=== PATIENT | female | born 1975 | race Two or more races ===

== ENCOUNTER → 2016-06-19 | Outpatient (CLI) | payer OTHER ==
--- NOTE | ~2016-06-19 | US98 ---
[facility] of [facility] RADIOLOGY TEXT RESULTS PATIENT: KAREN PULIDO LOCATION: [facility] : 73 UNIT #: [id number] AGE: [address]: Jarek Jordan MD SEX: F ORDER DR: [id number] [facility] [address] [place], [place] [address] [id number] O MR#: [id number] Acc #: [id number] NAME: KAREN PULIDO : 1975 SEX: F STUDY DATE/TIME: 06/19/2016 8:28 UNIT: [facility] ROOM: STUDY DESCRIPTION: US Pelvic Non-OB Complete Attending Physician: Jarek Jordan M.D. Referring Physician: Jarek Jordan M.D. Ordering Physician: Jarke Jordan M.D. Primary Care Physician: Jarek Jordan M.D. MEDICAL IMAGING REPORT This report is preliminary unless electronic signature is present EXAM Transabdominal and transvaginal pelvic ultrasound, 06/19/2016 HISTORY 40-year-old female with hematuria per referring physician's history. Patient states hematuria, abdominal and pelvic pain with postcoital bleeding for 12 years. G3, P2. IUD in place. No menses. COMPARISON None. FINDINGS Transabdominal imaging was performed for generalized visualization of pelvic structures while transvaginal imaging was performed for more detailed evaluation of the adnexa. The uterus measures 9.9 x 3.1 x 4.3 cm. Endometrial bilayer is thin measuring about 2.0 mm. No focal endometrial lesion is identified in the region of the cervix posteriorly. Cervical malignancy cannot be excluded. It is in a somewhat low lying or atypical position for a fibroid. The right ovary measures 1.3 x 2.0 x 2.7 cm and demonstrates normal color and spectral Doppler flow without cystic or solid abnormality. The left ovary measures 2.5 x 2.1 x 2.6 cm and contains a simple cyst or dominant follicle measuring 1.6 x 1.3 x 1.6 cm. The left ovary demonstrates normal color and spectral Doppler flow. No pelvic free fluid is identified. IMPRESSION 1. Approximately 2.2 cm regional hypoechogenicity is seen in the posterior lower uterus. It is unclear whether it is truly within the uterine cervix or within the low uterine body. Based upon submitted sonographic imaging, I am concerned that it could represent a STS. [facility] A Service of [facility] RADIOLOGY TEXT RESULTS PATIENT: KAREN PULIDO LOCATION: [facility] : 73 UNIT #: [id number] AGE: [address]: Jarek Jordan MD SEX: F ORDER DR: cervical lesion. Correlation with pelvic examination findings and Pap smear would be recommended. Additionally, MRI may prove helpful for further evaluation. 2. IUD appears appropriately positioned. 3. 1.6 cm left ovarian cyst or dominant follicle. 4. Normal flow was documented to each ovary. Dictated by... Krystina Hartman M.D. THIS IS AN ELECTRONICALLY VERIFIED REPORT Krystina Hartman M.D. at 06/20/2016 7:11 AM Griselda TD: 06/19/2016 15:18 JOB #: [id number] MEDICAL IMAGING REPORT Page 1 of 1 COPY
== END | disposition home or self-care (01) ==
LOC: CWCC 08:03
DX: R31.9 Hematuria, unspecified (principal); R93.49 Abnormal radiologic findings on diagnostic imaging of other urinary organs; Z97.5 Presence of (intrauterine) contraceptive device; N83.9 Noninflammatory disorder of ovary, fallopian tube and broad ligament, unspecified
CPT/HCPCS: 76830; 76856